=== PATIENT | male | born 1945 | race Caucasian/White ===

== ENCOUNTER 2020-05-23 13:58 | Inpatient (IN) ==
[2020-05-24] MEDS ORDERED: Dextrose Gel 15 GM/37.5 ML TUBE PO PRN ×2 (14:25)
[2020-05-24] MEDS ORDERED: *HR* Dextrose 50 % in Water (Vial) 50 ML VIAL IVP PRN (14:25)
[2020-05-24] MEDS ORDERED: D5% in Water 1,000 ML IVC PRN (14:25)
[2020-05-24 16:00] LABS: Estimated Average Glucose 151 mg/dl
[2020-05-24] MEDS: Insulin LISPRO 300 UNITS/3 ML VIAL SQ SCH ×2 (16:54→21:41)
[2020-05-24] MEDS: *HR* OxyCODONE/APAP 10/325 TABLET PO PRN (16:55)
[2020-05-24] MEDS: Gabapentin 300 MG CAPSULE PO SCH (21:40)
[2020-05-24] MEDS: Insulin DETEMIR 100 UNIT/ML X5UNITS SQ SCH (21:41)
[2020-05-25 07:04] LABS: Basophils % 0.6 %; Eosinophils # 0.2 K/mcL (0.0-0.6); Eosinophils % 3.2 %; Hematocrit 34.9 % (37.5-50.1); Immature Granulocytes % 0.6 % (0-4); Lymphocytes # 1.4 K/mcL (0.6-4.6); Lymphocytes % 21.6 %; Mean Corpuscular HGB Conc 34.4 g/dL (31.6-35.5); Mean Corpuscular Hemoglobin 29.3 pg (28.0-33.3); Mean Corpuscular Volume 85.1 fL (83.0-100.0); Mean Platelet Volume 9.5 fL (9.4-12.4); Monocytes # 0.8 K/mcL (0.0-1.3); Monocytes % 11.8 %; Neutrophils # 4.1 K/mcL (1.6-8.9); Platelet Count 243 K/mcL (140-400); Red Cell Distribution Width 14.6 % (11.5-14.5); Segmented Neutrophils % 62.2 %; White Blood Count 6.6 K/mcL (4.3-11.1)
[2020-05-25 07:22] LABS: BUN/Creatinine Ratio 20 (6-26); Blood Urea Nitrogen 25 mg/dL (8-23); Calcium 8.9 mg/dL (8.6-10.3); Carbon Dioxide 25 mEq/L (23-29); Chloride 95 mEq/L (98-107); Glucose 209 mg/dL (70-105); Osmolality,Calculated 275 (280-300); Potassium 4.7 mEq/L (3.5-5.1); Sodium 127 mEq/L (136-145); eGFR For African Americans > 60 (> 60); eGFR For Non-African Americans 58 (> 60)
[2020-05-25] MEDS: Insulin LISPRO 300 UNITS/3 ML VIAL SQ SCH ×4 (08:05→20:24)
[2020-05-25] MEDS: Gabapentin 300 MG CAPSULE PO SCH ×2 (08:09→20:24)
[2020-05-25] MEDS: Loratadine 10 MG TABLET PO SCH (08:09)
[2020-05-25] MEDS: Aspirin Enteric Coated 81 MG Tablet PO SCH (08:09)
[2020-05-25] MEDS: *HR* GlipiZIDE XL (24 HR) 10 MG TABLET PO SCH (08:09)
[2020-05-25] MEDS: *HR* Metformin 500 MG TABLET PO SCH ×2 (08:09→16:21)
[2020-05-25] MEDS: *HR* Pioglitazone 15 MG TABLET PO SCH (08:09)
[2020-05-25] MEDS: Finasteride 5 MG TABLET PO SCH (08:09)
[2020-05-25] MEDS: amLODIPine 5 MG TABLET PO SCH (08:09)
[2020-05-25] MEDS: Insulin DETEMIR 100 UNIT/ML X5UNITS SQ SCH ×2 (08:17→20:23)
[2020-05-25] MEDS: *HR* OxyCODONE/APAP 10/325 TABLET PO PRN ×2 (11:13→22:10)
[2020-05-26] MEDS: Insulin DETEMIR 100 UNIT/ML X5UNITS SQ SCH ×2 (08:59→20:27)
[2020-05-26] MEDS: Insulin LISPRO 300 UNITS/3 ML VIAL SQ SCH ×4 (09:00→20:27)
[2020-05-26] MEDS: *HR* GlipiZIDE XL (24 HR) 10 MG TABLET PO SCH (09:16)
[2020-05-26] MEDS: *HR* Metformin 500 MG TABLET PO SCH ×2 (09:16→16:54)
[2020-05-26] MEDS: Aspirin Enteric Coated 81 MG Tablet PO SCH (09:16)
[2020-05-26] MEDS: Gabapentin 300 MG CAPSULE PO SCH ×2 (09:16→20:27)
[2020-05-26] MEDS: *HR* Pioglitazone 15 MG TABLET PO SCH (09:16)
[2020-05-26] MEDS: Finasteride 5 MG TABLET PO SCH (09:16)
[2020-05-26] MEDS: amLODIPine 5 MG TABLET PO SCH (09:16)
[2020-05-26] MEDS: Loratadine 10 MG TABLET PO SCH (09:16)
[2020-05-26 10:25] LABS: BUN/Creatinine Ratio 20 (6-26); Blood Urea Nitrogen 26 mg/dL (8-23); Calcium 8.7 mg/dL (8.6-10.3); Carbon Dioxide 25 mEq/L (23-29); Chloride 95 mEq/L (98-107); Glucose 261 mg/dL (70-105); Osmolality,Calculated 278 (280-300); Potassium 4.7 mEq/L (3.5-5.1); Sodium 127 mEq/L (136-145); eGFR For African Americans > 60 (> 60); eGFR For Non-African Americans 55 (> 60)
[2020-05-26] MEDS: *HR* OxyCODONE/APAP 10/325 TABLET PO PRN ×2 (13:21→21:24)
[2020-05-27] MEDS: Insulin DETEMIR 100 UNIT/ML X5UNITS SQ SCH ×2 (08:08→20:38)
[2020-05-27] MEDS: Insulin LISPRO 300 UNITS/3 ML VIAL SQ SCH ×4 (08:08→20:39)
[2020-05-27] MEDS: *HR* Metformin 500 MG TABLET PO SCH ×2 (08:15→16:49)
[2020-05-27] MEDS: Loratadine 10 MG TABLET PO SCH (08:15)
[2020-05-27] MEDS: *HR* GlipiZIDE XL (24 HR) 10 MG TABLET PO SCH (08:15)
[2020-05-27] MEDS: amLODIPine 5 MG TABLET PO SCH (08:15)
[2020-05-27] MEDS: Gabapentin 300 MG CAPSULE PO SCH ×2 (08:15→20:38)
[2020-05-27] MEDS: Finasteride 5 MG TABLET PO SCH (08:15)
[2020-05-27] MEDS: Aspirin Enteric Coated 81 MG Tablet PO SCH (08:15)
[2020-05-27] MEDS: *HR* Pioglitazone 15 MG TABLET PO SCH (08:16)
[2020-05-27 08:43] LABS: BUN/Creatinine Ratio 20 (6-26); Blood Urea Nitrogen 25 mg/dL (8-23); Calcium 8.7 mg/dL (8.6-10.3); Carbon Dioxide 26 mEq/L (23-29); Chloride 96 mEq/L (98-107); Glucose 177 mg/dL (70-105); Osmolality,Calculated 277 (280-300); Sodium 129 mEq/L (136-145); eGFR For African Americans > 60 (> 60); eGFR For Non-African Americans 57 (> 60)
[2020-05-27] MEDS: *HR* OxyCODONE/APAP 10/325 TABLET PO PRN ×2 (11:06→19:29)
[2020-05-28] MEDS: Finasteride 5 MG TABLET PO SCH (08:54)
[2020-05-28] MEDS: *HR* Pioglitazone 15 MG TABLET PO SCH (08:54)
[2020-05-28] MEDS: *HR* GlipiZIDE XL (24 HR) 10 MG TABLET PO SCH (08:54)
[2020-05-28] MEDS: Aspirin Enteric Coated 81 MG Tablet PO SCH (08:54)
[2020-05-28] MEDS: Loratadine 10 MG TABLET PO SCH (08:55)
[2020-05-28] MEDS: amLODIPine 5 MG TABLET PO SCH (08:55)
[2020-05-28] MEDS: *HR* Metformin 500 MG TABLET PO SCH ×2 (08:55→16:57)
[2020-05-28] MEDS: Gabapentin 300 MG CAPSULE PO SCH ×2 (08:56→20:19)
[2020-05-28] MEDS: Insulin DETEMIR 100 UNIT/ML X5UNITS SQ SCH ×2 (08:56→21:15)
[2020-05-28] MEDS: Insulin LISPRO 300 UNITS/3 ML VIAL SQ SCH ×4 (08:56→21:12)
[2020-05-28] MEDS: *HR* OxyCODONE/APAP 10/325 TABLET PO PRN ×2 (10:11→19:12)
[2020-05-29] MEDS: amLODIPine 5 MG TABLET PO SCH (08:58)
[2020-05-29] MEDS: Loratadine 10 MG TABLET PO SCH (08:58)
[2020-05-29] MEDS: *HR* Metformin 500 MG TABLET PO SCH ×2 (08:58→16:53)
[2020-05-29] MEDS: Finasteride 5 MG TABLET PO SCH (08:58)
[2020-05-29] MEDS: Aspirin Enteric Coated 81 MG Tablet PO SCH (08:58)
[2020-05-29] MEDS: Gabapentin 300 MG CAPSULE PO SCH ×2 (08:58→20:22)
[2020-05-29] MEDS: *HR* Pioglitazone 15 MG TABLET PO SCH (09:01)
[2020-05-29] MEDS: *HR* GlipiZIDE XL (24 HR) 10 MG TABLET PO SCH (09:01)
[2020-05-29] MEDS: *HR* OxyCODONE/APAP 10/325 TABLET PO PRN ×2 (09:02→20:22)
[2020-05-29] MEDS: Insulin LISPRO 300 UNITS/3 ML VIAL SQ SCH ×4 (09:06→20:24)
[2020-05-29] MEDS: Insulin DETEMIR 100 UNIT/ML X5UNITS SQ SCH ×2 (09:06→20:23)
[2020-05-30] MEDS: Insulin LISPRO 300 UNITS/3 ML VIAL SQ SCH ×3 (08:24→21:21)
[2020-05-30] MEDS: *HR* Pioglitazone 15 MG TABLET PO SCH (09:11)
[2020-05-30] MEDS: Aspirin Enteric Coated 81 MG Tablet PO SCH (09:12)
[2020-05-30] MEDS: Loratadine 10 MG TABLET PO SCH (09:12)
[2020-05-30] MEDS: *HR* GlipiZIDE XL (24 HR) 10 MG TABLET PO SCH (09:12)
[2020-05-30] MEDS: Gabapentin 300 MG CAPSULE PO SCH ×2 (09:12→21:17)
[2020-05-30] MEDS: amLODIPine 5 MG TABLET PO SCH (09:12)
[2020-05-30] MEDS: Insulin DETEMIR 100 UNIT/ML X5UNITS SQ SCH ×2 (09:12→21:17)
[2020-05-30] MEDS: *HR* Metformin 500 MG TABLET PO SCH (09:12)
[2020-05-30] MEDS: Finasteride 5 MG TABLET PO SCH (09:12)
[2020-05-30] MEDS: *HR* OxyCODONE/APAP 10/325 TABLET PO PRN ×2 (09:48→21:17)
[2020-05-30 23:03] LABS: Adenovirus Not Detected (Not Detect); Bordetella Pertussis Not Detected (Not Detect); Chlamydophila pneumoniae Not Detected (Not Detect); Coronavirus 229E Not Detected (Not Detect); Coronavirus HKU1 Not Detected (Not Detect); Coronavirus NL63 Not Detected (Not Detect); Coronavirus OC43 Not Detected (Not Detect); Human Metapneumovirus Not Detected (Not Detect); Human Rhinovirus/Enterovirus Not Detected (Not Detect); Influenza A Subtype 2009 H1 Not Detected (Not Detect); Influenza B Not Detected (Not Detect); Mycoplasma pneumoniae Not Detected (Not Detect); Parainfluenza Virus 1 Not Detected (Not Detect); Parainfluenza Virus 2 Not Detected (Not Detect); Parainfluenza Virus 3 Not Detected (Not Detect); Parainfluenza Virus 4 Not Detected (Not Detect); Respiratory Syncytial Virus Not Detected (Not Detect); SARS-CoV-2 Not Detected (Not Detect)
[2020-05-31] MEDS: Insulin LISPRO 300 UNITS/3 ML VIAL SQ SCH ×5 (04:14→20:14)
[2020-05-31] MEDS: *HR* Metformin 500 MG TABLET PO SCH ×3 (04:15→17:01)
[2020-05-31] MEDS: Aspirin Enteric Coated 81 MG Tablet PO SCH (09:25)
[2020-05-31] MEDS: amLODIPine 5 MG TABLET PO SCH (09:25)
[2020-05-31] MEDS: Finasteride 5 MG TABLET PO SCH (09:26)
[2020-05-31] MEDS: *HR* GlipiZIDE XL (24 HR) 10 MG TABLET PO SCH (09:26)
[2020-05-31] MEDS: Loratadine 10 MG TABLET PO SCH (09:26)
[2020-05-31] MEDS: *HR* Pioglitazone 15 MG TABLET PO SCH (09:26)
[2020-05-31] MEDS: *HR* OxyCODONE/APAP 10/325 TABLET PO PRN ×2 (09:26→20:11)
[2020-05-31] MEDS: Gabapentin 300 MG CAPSULE PO SCH ×2 (09:26→20:06)
[2020-05-31] MEDS: Insulin DETEMIR 100 UNIT/ML X5UNITS SQ SCH ×2 (09:26→20:06)
[2020-06-01] MEDS: *HR* GlipiZIDE XL (24 HR) 10 MG TABLET PO SCH (08:34)
[2020-06-01] MEDS: Insulin DETEMIR 100 UNIT/ML X5UNITS SQ SCH ×2 (08:34→20:53)
[2020-06-01] MEDS: Finasteride 5 MG TABLET PO SCH (08:35)
[2020-06-01] MEDS: Aspirin Enteric Coated 81 MG Tablet PO SCH (08:35)
[2020-06-01] MEDS: Gabapentin 300 MG CAPSULE PO SCH ×2 (08:35→20:52)
[2020-06-01] MEDS: *HR* Pioglitazone 15 MG TABLET PO SCH (08:35)
[2020-06-01] MEDS: *HR* Metformin 500 MG TABLET PO SCH ×2 (08:35→16:52)
[2020-06-01] MEDS: amLODIPine 5 MG TABLET PO SCH (08:36)
[2020-06-01] MEDS: Loratadine 10 MG TABLET PO SCH (08:36)
[2020-06-01] MEDS: Insulin LISPRO 300 UNITS/3 ML VIAL SQ SCH ×4 (08:37→20:53)
[2020-06-01] MEDS: *HR* OxyCODONE/APAP 10/325 TABLET PO PRN ×2 (08:41→20:52)
[2020-06-02 06:58] LABS: Basophils % 0.5 %; Eosinophils # 0.2 K/mcL (0.0-0.6); Eosinophils % 3.2 %; Hematocrit 34.7 % (37.5-50.1); Hemoglobin 11.6 g/dL (12.9-16.9); Immature Granulocytes % 0.2 % (0-4); Lymphocytes # 1.2 K/mcL (0.6-4.6); Lymphocytes % 19.2 %; Mean Corpuscular HGB Conc 33.4 g/dL (31.6-35.5); Mean Corpuscular Hemoglobin 29.1 pg (28.0-33.3); Mean Platelet Volume 9.8 fL (9.4-12.4); Monocytes # 0.6 K/mcL (0.0-1.3); Monocytes % 9.7 %; Neutrophils # 4.2 K/mcL (1.6-8.9); Platelet Count 218 K/mcL (140-400); Red Blood Count 3.99 M/mcL (4.19-5.50); Red Cell Distribution Width 14.9 % (11.5-14.5); Segmented Neutrophils % 67.2 %; White Blood Count 6.2 K/mcL (4.3-11.1)
[2020-06-02 07:22] LABS: BUN/Creatinine Ratio 20 (6-26); Blood Urea Nitrogen 23 mg/dL (8-23); Calcium 8.7 mg/dL (8.6-10.3); Carbon Dioxide 26 mEq/L (23-29); Chloride 98 mEq/L (98-107); Glucose 113 mg/dL (70-105); Osmolality,Calculated 276 (280-300); Potassium 4.6 mEq/L (3.5-5.1); Sodium 131 mEq/L (136-145); eGFR For African Americans > 60 (> 60); eGFR For Non-African Americans > 60 (> 60)
[2020-06-02] MEDS: Insulin LISPRO 300 UNITS/3 ML VIAL SQ SCH ×4 (07:38→21:22)
[2020-06-02] MEDS: *HR* Pioglitazone 15 MG TABLET PO SCH (08:14)
[2020-06-02] MEDS: Aspirin Enteric Coated 81 MG Tablet PO SCH (08:14)
[2020-06-02] MEDS: *HR* GlipiZIDE XL (24 HR) 10 MG TABLET PO SCH (08:14)
[2020-06-02] MEDS: *HR* Metformin 500 MG TABLET PO SCH ×2 (08:15→16:33)
[2020-06-02] MEDS: amLODIPine 5 MG TABLET PO SCH (08:16)
[2020-06-02] MEDS: Gabapentin 300 MG CAPSULE PO SCH ×2 (08:16→21:20)
[2020-06-02] MEDS: Insulin DETEMIR 100 UNIT/ML X5UNITS SQ SCH ×2 (08:16→21:22)
[2020-06-02] MEDS: Finasteride 5 MG TABLET PO SCH (08:16)
[2020-06-02] MEDS: Loratadine 10 MG TABLET PO SCH (08:16)
[2020-06-02] MEDS: *HR* OxyCODONE/APAP 10/325 TABLET PO PRN ×2 (08:18→16:33)
[2020-06-03] MEDS: Gabapentin 300 MG CAPSULE PO SCH ×2 (08:11→19:54)
[2020-06-03] MEDS: Aspirin Enteric Coated 81 MG Tablet PO SCH (08:11)
[2020-06-03] MEDS: Loratadine 10 MG TABLET PO SCH (08:11)
[2020-06-03] MEDS: amLODIPine 5 MG TABLET PO SCH (08:11)
[2020-06-03] MEDS: *HR* Pioglitazone 15 MG TABLET PO SCH (08:11)
[2020-06-03] MEDS: *HR* Metformin 500 MG TABLET PO SCH ×2 (08:11→16:05)
[2020-06-03] MEDS: *HR* GlipiZIDE XL (24 HR) 10 MG TABLET PO SCH (08:11)
[2020-06-03] MEDS: Insulin DETEMIR 100 UNIT/ML X5UNITS SQ SCH ×2 (08:12→19:59)
[2020-06-03] MEDS: Finasteride 5 MG TABLET PO SCH (08:12)
[2020-06-03] MEDS: Insulin LISPRO 300 UNITS/3 ML VIAL SQ SCH ×4 (08:12→20:04)
[2020-06-03] MEDS: *HR* OxyCODONE/APAP 10/325 TABLET PO PRN ×2 (09:18→18:28)
[2020-06-03] MEDS: lisinopriL 20 MG TABLET PO SCH (11:07)
[2020-06-04] MEDS: Insulin LISPRO 300 UNITS/3 ML VIAL SQ SCH ×4 (08:52→20:28)
[2020-06-04] MEDS: *HR* Pioglitazone 15 MG TABLET PO SCH (09:55)
[2020-06-04] MEDS: Loratadine 10 MG TABLET PO SCH (09:56)
[2020-06-04] MEDS: *HR* Metformin 500 MG TABLET PO SCH ×2 (09:56→17:57)
[2020-06-04] MEDS: *HR* OxyCODONE/APAP 10/325 TABLET PO PRN ×2 (09:56→17:57)
[2020-06-04] MEDS: *HR* GlipiZIDE XL (24 HR) 10 MG TABLET PO SCH (09:56)
[2020-06-04] MEDS: lisinopriL 20 MG TABLET PO SCH (09:56)
[2020-06-04] MEDS: amLODIPine 5 MG TABLET PO SCH (09:56)
[2020-06-04] MEDS: Finasteride 5 MG TABLET PO SCH (09:56)
[2020-06-04] MEDS: Gabapentin 300 MG CAPSULE PO SCH ×2 (09:57→20:28)
[2020-06-04] MEDS: Insulin DETEMIR 100 UNIT/ML X5UNITS SQ SCH ×2 (09:57→20:29)
[2020-06-04] MEDS: Aspirin Enteric Coated 81 MG Tablet PO SCH (09:57)
[2020-06-05] MEDS: Insulin DETEMIR 100 UNIT/ML X5UNITS SQ SCH ×2 (08:10→20:05)
[2020-06-05] MEDS: *HR* Metformin 500 MG TABLET PO SCH ×2 (08:10→17:01)
[2020-06-05] MEDS: Aspirin Enteric Coated 81 MG Tablet PO SCH (08:11)
[2020-06-05] MEDS: Finasteride 5 MG TABLET PO SCH (08:11)
[2020-06-05] MEDS: lisinopriL 20 MG TABLET PO SCH (08:11)
[2020-06-05] MEDS: Loratadine 10 MG TABLET PO SCH (08:11)
[2020-06-05] MEDS: Insulin LISPRO 300 UNITS/3 ML VIAL SQ SCH ×4 (08:11→20:20)
[2020-06-05] MEDS: Gabapentin 300 MG CAPSULE PO SCH ×2 (08:11→20:05)
[2020-06-05] MEDS: amLODIPine 5 MG TABLET PO SCH (08:11)
[2020-06-05] MEDS: *HR* Pioglitazone 15 MG TABLET PO SCH (08:19)
[2020-06-05] MEDS: *HR* OxyCODONE/APAP 10/325 TABLET PO PRN ×2 (08:19→17:53)
[2020-06-05] MEDS: *HR* GlipiZIDE XL (24 HR) 10 MG TABLET PO SCH (08:19)
[2020-06-06] MEDS: Insulin LISPRO 300 UNITS/3 ML VIAL SQ SCH ×4 (09:10→21:02)
[2020-06-06] MEDS: Gabapentin 300 MG CAPSULE PO SCH ×2 (09:12→21:03)
[2020-06-06] MEDS: *HR* Metformin 500 MG TABLET PO SCH ×2 (09:12→17:28)
[2020-06-06] MEDS: *HR* GlipiZIDE XL (24 HR) 10 MG TABLET PO SCH (09:12)
[2020-06-06] MEDS: lisinopriL 20 MG TABLET PO SCH (09:12)
[2020-06-06] MEDS: *HR* Pioglitazone 15 MG TABLET PO SCH (09:13)
[2020-06-06] MEDS: Loratadine 10 MG TABLET PO SCH (09:13)
[2020-06-06] MEDS: Finasteride 5 MG TABLET PO SCH (09:13)
[2020-06-06] MEDS: Aspirin Enteric Coated 81 MG Tablet PO SCH (09:13)
[2020-06-06] MEDS: amLODIPine 5 MG TABLET PO SCH (09:13)
[2020-06-06] MEDS: *HR* OxyCODONE/APAP 10/325 TABLET PO PRN ×2 (09:13→21:04)
[2020-06-06] MEDS: Insulin DETEMIR 100 UNIT/ML X5UNITS SQ SCH ×2 (09:21→22:19)
[2020-06-07] MEDS: *HR* OxyCODONE/APAP 10/325 TABLET PO PRN ×2 (06:06→17:15)
[2020-06-07] MEDS: amLODIPine 5 MG TABLET PO SCH (08:06)
[2020-06-07] MEDS: Finasteride 5 MG TABLET PO SCH (08:06)
[2020-06-07] MEDS: *HR* Pioglitazone 15 MG TABLET PO SCH (08:06)
[2020-06-07] MEDS: Gabapentin 300 MG CAPSULE PO SCH ×2 (08:06→20:18)
[2020-06-07] MEDS: *HR* GlipiZIDE XL (24 HR) 10 MG TABLET PO SCH (08:06)
[2020-06-07] MEDS: Loratadine 10 MG TABLET PO SCH (08:07)
[2020-06-07] MEDS: Aspirin Enteric Coated 81 MG Tablet PO SCH (08:07)
[2020-06-07] MEDS: *HR* Metformin 500 MG TABLET PO SCH ×2 (08:07→17:12)
[2020-06-07] MEDS: lisinopriL 20 MG TABLET PO SCH (08:07)
[2020-06-07] MEDS: Insulin LISPRO 300 UNITS/3 ML VIAL SQ SCH ×4 (08:08→20:24)
[2020-06-07] MEDS: Insulin DETEMIR 100 UNIT/ML X5UNITS SQ SCH ×2 (08:43→20:18)
[2020-06-07] MEDS ORDERED: Furosemide 40 MG TABLET PO ONE (08:56)
[2020-06-08] MEDS: Insulin LISPRO 300 UNITS/3 ML VIAL SQ SCH ×4 (08:55→20:27)
[2020-06-08] MEDS: *HR* OxyCODONE/APAP 10/325 TABLET PO PRN ×2 (08:56→20:25)
[2020-06-08] MEDS: Finasteride 5 MG TABLET PO SCH (08:57)
[2020-06-08] MEDS: *HR* GlipiZIDE XL (24 HR) 10 MG TABLET PO SCH (08:57)
[2020-06-08] MEDS: Aspirin Enteric Coated 81 MG Tablet PO SCH (08:57)
[2020-06-08] MEDS: lisinopriL 20 MG TABLET PO SCH (08:57)
[2020-06-08] MEDS: *HR* Pioglitazone 15 MG TABLET PO SCH (08:57)
[2020-06-08] MEDS: Gabapentin 300 MG CAPSULE PO SCH ×2 (08:57→20:25)
[2020-06-08] MEDS: amLODIPine 5 MG TABLET PO SCH (08:57)
[2020-06-08] MEDS: *HR* Metformin 500 MG TABLET PO SCH ×2 (08:57→16:01)
[2020-06-08] MEDS: Loratadine 10 MG TABLET PO SCH (08:57)
[2020-06-08] MEDS: Insulin DETEMIR 100 UNIT/ML X5UNITS SQ SCH ×2 (08:58→20:25)
[2020-06-09] MEDS: Insulin LISPRO 300 UNITS/3 ML VIAL SQ SCH ×4 (07:33→20:12)
[2020-06-09] MEDS: lisinopriL 20 MG TABLET PO SCH (08:34)
[2020-06-09] MEDS: Gabapentin 300 MG CAPSULE PO SCH ×2 (08:34→20:11)
[2020-06-09] MEDS: *HR* Pioglitazone 15 MG TABLET PO SCH (08:34)
[2020-06-09] MEDS: *HR* Metformin 500 MG TABLET PO SCH ×2 (08:34→16:29)
[2020-06-09] MEDS: Finasteride 5 MG TABLET PO SCH (08:34)
[2020-06-09] MEDS: *HR* GlipiZIDE XL (24 HR) 10 MG TABLET PO SCH (08:34)
[2020-06-09] MEDS: amLODIPine 5 MG TABLET PO SCH (08:34)
[2020-06-09] MEDS: Aspirin Enteric Coated 81 MG Tablet PO SCH (08:34)
[2020-06-09] MEDS: Insulin DETEMIR 100 UNIT/ML X5UNITS SQ SCH ×2 (08:35→20:12)
[2020-06-09] MEDS: *HR* OxyCODONE/APAP 10/325 TABLET PO PRN ×2 (08:35→16:32)
[2020-06-09] MEDS: Loratadine 10 MG TABLET PO SCH (08:35)
[2020-06-10] MEDS: Insulin LISPRO 300 UNITS/3 ML VIAL SQ SCH ×4 (08:09→20:21)
[2020-06-10] MEDS: Loratadine 10 MG TABLET PO SCH (08:10)
[2020-06-10] MEDS: amLODIPine 5 MG TABLET PO SCH (08:10)
[2020-06-10] MEDS: *HR* GlipiZIDE XL (24 HR) 10 MG TABLET PO SCH (08:10)
[2020-06-10] MEDS: *HR* OxyCODONE/APAP 10/325 TABLET PO PRN ×2 (08:10→16:51)
[2020-06-10] MEDS: Finasteride 5 MG TABLET PO SCH (08:10)
[2020-06-10] MEDS: lisinopriL 20 MG TABLET PO SCH (08:10)
[2020-06-10] MEDS: *HR* Metformin 500 MG TABLET PO SCH ×2 (08:11→16:45)
[2020-06-10] MEDS: Gabapentin 300 MG CAPSULE PO SCH ×2 (08:11→20:10)
[2020-06-10] MEDS: Insulin DETEMIR 100 UNIT/ML X5UNITS SQ SCH ×2 (08:11→20:10)
[2020-06-10] MEDS: Aspirin Enteric Coated 81 MG Tablet PO SCH (08:11)
[2020-06-10] MEDS: *HR* Pioglitazone 15 MG TABLET PO SCH (08:11)
[2020-06-11 06:07] LABS: Hematocrit 32.7 % (37.5-50.1); Hemoglobin 10.8 g/dL (12.9-16.9); Mean Corpuscular Volume 87.9 fL (83.0-100.0); Mean Platelet Volume 9.6 fL (9.4-12.4); Platelet Count 195 K/mcL (140-400); Red Blood Count 3.72 M/mcL (4.19-5.50); White Blood Count 4.4 K/mcL (4.3-11.1)
[2020-06-11 07:01] LABS: Potassium 5.2 mEq/L (3.5-5.1); Sodium 132 mEq/L (136-145)
[2020-06-11 07:02] LABS: BUN/Creatinine Ratio 20 (6-26); Blood Urea Nitrogen 21 mg/dL (8-23); Carbon Dioxide 23 mEq/L (23-29); Chloride 102 mEq/L (98-107); Glucose 94 mg/dL (70-105); Osmolality,Calculated 277 (280-300); eGFR For African Americans > 60 (> 60); eGFR For Non-African Americans > 60 (> 60)
[2020-06-11 07:03] LABS: Calcium 8.6 mg/dL (8.6-10.3); Magnesium 1.8 mg/dL (1.6-2.6)
[2020-06-11] MEDS: Insulin DETEMIR 100 UNIT/ML X5UNITS SQ SCH ×2 (08:27→19:47)
[2020-06-11] MEDS: *HR* Metformin 500 MG TABLET PO SCH ×2 (08:28→16:41)
[2020-06-11] MEDS: Loratadine 10 MG TABLET PO SCH (08:28)
[2020-06-11] MEDS: Finasteride 5 MG TABLET PO SCH (08:28)
[2020-06-11] MEDS: Aspirin Enteric Coated 81 MG Tablet PO SCH (08:28)
[2020-06-11] MEDS: lisinopriL 20 MG TABLET PO SCH (08:28)
[2020-06-11] MEDS: *HR* Pioglitazone 15 MG TABLET PO SCH (08:28)
[2020-06-11] MEDS: amLODIPine 5 MG TABLET PO SCH (08:28)
[2020-06-11] MEDS: Gabapentin 300 MG CAPSULE PO SCH ×2 (08:28→19:46)
[2020-06-11] MEDS: *HR* GlipiZIDE XL (24 HR) 10 MG TABLET PO SCH (08:28)
[2020-06-11] MEDS: *HR* OxyCODONE/APAP 10/325 TABLET PO PRN ×2 (08:30→16:44)
[2020-06-11] MEDS: Insulin LISPRO 300 UNITS/3 ML VIAL SQ SCH ×4 (08:44→19:45)
[2020-06-12] MEDS: Gabapentin 300 MG CAPSULE PO SCH ×2 (08:43→20:10)
[2020-06-12] MEDS: lisinopriL 20 MG TABLET PO SCH (08:43)
[2020-06-12] MEDS: Aspirin Enteric Coated 81 MG Tablet PO SCH (08:43)
[2020-06-12] MEDS: *HR* GlipiZIDE XL (24 HR) 10 MG TABLET PO SCH (08:43)
[2020-06-12] MEDS: amLODIPine 5 MG TABLET PO SCH (08:43)
[2020-06-12] MEDS: Finasteride 5 MG TABLET PO SCH (08:43)
[2020-06-12] MEDS: *HR* Pioglitazone 15 MG TABLET PO SCH (08:43)
[2020-06-12] MEDS: *HR* Metformin 500 MG TABLET PO SCH ×2 (08:43→16:59)
[2020-06-12] MEDS: Loratadine 10 MG TABLET PO SCH (08:44)
[2020-06-12] MEDS: Insulin LISPRO 300 UNITS/3 ML VIAL SQ SCH ×4 (08:44→20:10)
[2020-06-12] MEDS: *HR* OxyCODONE/APAP 10/325 TABLET PO PRN ×2 (08:46→20:10)
[2020-06-12] MEDS: Insulin DETEMIR 100 UNIT/ML X5UNITS SQ SCH ×2 (09:26→20:10)
[2020-06-13] MEDS: Insulin LISPRO 300 UNITS/3 ML VIAL SQ SCH ×4 (09:24→20:16)
[2020-06-13] MEDS: Aspirin Enteric Coated 81 MG Tablet PO SCH (10:42)
[2020-06-13] MEDS: amLODIPine 5 MG TABLET PO SCH (10:42)
[2020-06-13] MEDS: Gabapentin 300 MG CAPSULE PO SCH ×2 (10:42→20:09)
[2020-06-13] MEDS: *HR* Metformin 500 MG TABLET PO SCH ×2 (10:43→16:33)
[2020-06-13] MEDS: Loratadine 10 MG TABLET PO SCH (10:43)
[2020-06-13] MEDS: lisinopriL 20 MG TABLET PO SCH (10:43)
[2020-06-13] MEDS: *HR* Pioglitazone 15 MG TABLET PO SCH (10:44)
[2020-06-13] MEDS: *HR* GlipiZIDE XL (24 HR) 10 MG TABLET PO SCH (10:44)
[2020-06-13] MEDS: Insulin DETEMIR 100 UNIT/ML X5UNITS SQ SCH ×2 (10:44→20:10)
[2020-06-13] MEDS: Finasteride 5 MG TABLET PO SCH (10:45)
[2020-06-13] MEDS: *HR* OxyCODONE/APAP 10/325 TABLET PO PRN ×2 (12:07→20:09)
[2020-06-14] MEDS: Insulin LISPRO 300 UNITS/3 ML VIAL SQ SCH ×4 (08:24→19:44)
[2020-06-14] MEDS: *HR* Pioglitazone 15 MG TABLET PO SCH (08:25)
[2020-06-14] MEDS: Aspirin Enteric Coated 81 MG Tablet PO SCH (08:25)
[2020-06-14] MEDS: *HR* Metformin 500 MG TABLET PO SCH ×2 (08:25→18:30)
[2020-06-14] MEDS: Finasteride 5 MG TABLET PO SCH (08:25)
[2020-06-14] MEDS: lisinopriL 20 MG TABLET PO SCH (08:26)
[2020-06-14] MEDS: Gabapentin 300 MG CAPSULE PO SCH ×2 (08:26→21:10)
[2020-06-14] MEDS: Insulin DETEMIR 100 UNIT/ML X5UNITS SQ SCH ×2 (08:26→21:10)
[2020-06-14] MEDS: *HR* GlipiZIDE XL (24 HR) 10 MG TABLET PO SCH (08:26)
[2020-06-14] MEDS: amLODIPine 5 MG TABLET PO SCH (08:26)
[2020-06-14] MEDS: Loratadine 10 MG TABLET PO SCH (08:26)
[2020-06-14] MEDS: *HR* OxyCODONE/APAP 10/325 TABLET PO PRN ×2 (08:26→18:34)
[2020-06-14 21:16] LABS: Adenovirus Not Detected (Not Detect); Bordetella Pertussis Not Detected (Not Detect); Chlamydophila pneumoniae Not Detected (Not Detect); Coronavirus 229E Not Detected (Not Detect); Coronavirus HKU1 Not Detected (Not Detect); Coronavirus NL63 Not Detected (Not Detect); Coronavirus OC43 Not Detected (Not Detect); Human Metapneumovirus Not Detected (Not Detect); Human Rhinovirus/Enterovirus Not Detected (Not Detect); Influenza A Subtype 2009 H1 Not Detected (Not Detect); Influenza B Not Detected (Not Detect); Mycoplasma pneumoniae Not Detected (Not Detect); Parainfluenza Virus 1 Not Detected (Not Detect); Parainfluenza Virus 2 Not Detected (Not Detect); Parainfluenza Virus 3 Not Detected (Not Detect); Parainfluenza Virus 4 Not Detected (Not Detect); Respiratory Syncytial Virus Not Detected (Not Detect); SARS-CoV-2 Not Detected (Not Detect)
[2020-06-15] MEDS: Insulin LISPRO 300 UNITS/3 ML VIAL SQ SCH ×4 (08:34→21:36)
[2020-06-15] MEDS: *HR* Pioglitazone 15 MG TABLET PO SCH (09:05)
[2020-06-15] MEDS: *HR* Metformin 500 MG TABLET PO SCH ×2 (09:05→17:39)
[2020-06-15] MEDS: Insulin DETEMIR 100 UNIT/ML X5UNITS SQ SCH ×2 (09:05→22:11)
[2020-06-15] MEDS: lisinopriL 20 MG TABLET PO SCH (09:05)
[2020-06-15] MEDS: Gabapentin 300 MG CAPSULE PO SCH ×2 (09:05→22:11)
[2020-06-15] MEDS: *HR* GlipiZIDE XL (24 HR) 10 MG TABLET PO SCH (09:06)
[2020-06-15] MEDS: *HR* OxyCODONE/APAP 10/325 TABLET PO PRN ×2 (09:06→17:43)
[2020-06-15] MEDS: Loratadine 10 MG TABLET PO SCH (09:06)
[2020-06-15] MEDS: Finasteride 5 MG TABLET PO SCH (09:06)
[2020-06-15] MEDS: Aspirin Enteric Coated 81 MG Tablet PO SCH (09:06)
[2020-06-15] MEDS: amLODIPine 5 MG TABLET PO SCH (09:06)
[2020-06-16] MEDS: Insulin LISPRO 300 UNITS/3 ML VIAL SQ SCH ×4 (08:49→22:17)
[2020-06-16] MEDS: Gabapentin 300 MG CAPSULE PO SCH ×2 (09:10→20:30)
[2020-06-16] MEDS: Finasteride 5 MG TABLET PO SCH (09:10)
[2020-06-16] MEDS: Aspirin Enteric Coated 81 MG Tablet PO SCH (09:10)
[2020-06-16] MEDS: lisinopriL 20 MG TABLET PO SCH (09:10)
[2020-06-16] MEDS: Loratadine 10 MG TABLET PO SCH (09:10)
[2020-06-16] MEDS: amLODIPine 5 MG TABLET PO SCH (09:10)
[2020-06-16] MEDS: *HR* Pioglitazone 15 MG TABLET PO SCH (09:10)
[2020-06-16] MEDS: *HR* GlipiZIDE XL (24 HR) 10 MG TABLET PO SCH (09:10)
[2020-06-16] MEDS: *HR* Metformin 500 MG TABLET PO SCH ×2 (09:10→18:02)
[2020-06-16] MEDS: Insulin DETEMIR 100 UNIT/ML X5UNITS SQ SCH ×2 (09:19→20:31)
[2020-06-16] MEDS: *HR* OxyCODONE/APAP 10/325 TABLET PO PRN ×2 (09:22→20:35)
[2020-06-17 07:23] LABS: Basophils % 0.4 %; Eosinophils # 0.2 K/mcL (0.0-0.6); Eosinophils % 4.2 %; Hematocrit 32.8 % (37.5-50.1); Hemoglobin 10.7 g/dL (12.9-16.9); Immature Granulocytes % 0.2 % (0-4); Lymphocytes # 1.1 K/mcL (0.6-4.6); Lymphocytes % 24.4 %; Mean Corpuscular HGB Conc 32.6 g/dL (31.6-35.5); Mean Corpuscular Hemoglobin 28.7 pg (28.0-33.3); Mean Corpuscular Volume 87.9 fL (83.0-100.0); Mean Platelet Volume 9.8 fL (9.4-12.4); Monocytes # 0.5 K/mcL (0.0-1.3); Neutrophils # 2.7 K/mcL (1.6-8.9); Platelet Count 197 K/mcL (140-400); Red Blood Count 3.73 M/mcL (4.19-5.50); Red Cell Distribution Width 15.4 % (11.5-14.5); Segmented Neutrophils % 58.8 %; White Blood Count 4.5 K/mcL (4.3-11.1)
[2020-06-17 07:42] LABS: BUN/Creatinine Ratio 20 (6-26); Blood Urea Nitrogen 24 mg/dL (8-23); Calcium 8.4 mg/dL (8.6-10.3); Carbon Dioxide 25 mEq/L (23-29); Chloride 102 mEq/L (98-107); Glucose 89 mg/dL (70-105); Osmolality,Calculated 282 (280-300); Sodium 134 mEq/L (136-145); eGFR For African Americans > 60 (> 60); eGFR For Non-African Americans 59 (> 60)
[2020-06-17] MEDS: Insulin DETEMIR 100 UNIT/ML X5UNITS SQ SCH ×2 (09:01→20:14)
[2020-06-17] MEDS: amLODIPine 5 MG TABLET PO SCH (09:02)
[2020-06-17] MEDS: Gabapentin 300 MG CAPSULE PO SCH ×2 (09:02→20:12)
[2020-06-17] MEDS: Finasteride 5 MG TABLET PO SCH (09:02)
[2020-06-17] MEDS: *HR* GlipiZIDE XL (24 HR) 10 MG TABLET PO SCH (09:02)
[2020-06-17] MEDS: Aspirin Enteric Coated 81 MG Tablet PO SCH (09:03)
[2020-06-17] MEDS: *HR* Metformin 500 MG TABLET PO SCH ×2 (09:03→16:34)
[2020-06-17] MEDS: lisinopriL 20 MG TABLET PO SCH (09:03)
[2020-06-17] MEDS: *HR* OxyCODONE/APAP 10/325 TABLET PO PRN ×2 (09:03→20:12)
[2020-06-17] MEDS: Loratadine 10 MG TABLET PO SCH (09:03)
[2020-06-17] MEDS: *HR* Pioglitazone 15 MG TABLET PO SCH (09:03)
[2020-06-17] MEDS: Insulin LISPRO 300 UNITS/3 ML VIAL SQ SCH ×4 (09:04→20:19)
[2020-06-18 06:48] VITALS: BP 131/67
[2020-06-18] MEDS: Insulin LISPRO 300 UNITS/3 ML VIAL SQ SCH ×2 (07:20→12:19)
[2020-06-18] MEDS: *HR* Metformin 500 MG TABLET PO SCH (08:01)
[2020-06-18] MEDS: Gabapentin 300 MG CAPSULE PO SCH (08:01)
[2020-06-18] MEDS: *HR* Pioglitazone 15 MG TABLET PO SCH (08:01)
[2020-06-18] MEDS: Aspirin Enteric Coated 81 MG Tablet PO SCH (08:01)
[2020-06-18] MEDS: Finasteride 5 MG TABLET PO SCH (08:02)
[2020-06-18] MEDS: Loratadine 10 MG TABLET PO SCH (08:02)
[2020-06-18] MEDS: amLODIPine 5 MG TABLET PO SCH (08:02)
[2020-06-18] MEDS: *HR* GlipiZIDE XL (24 HR) 10 MG TABLET PO SCH (08:02)
[2020-06-18] MEDS: lisinopriL 20 MG TABLET PO SCH (08:02)
[2020-06-18] MEDS: Insulin DETEMIR 100 UNIT/ML X5UNITS SQ SCH (09:10)
== END 2020-06-18 17:15 | disposition home health service (06) | DRG 552 ==
LOC: INPPIK 05-24 13:50
PROVIDERS: ADMIT Family Medicine; ATTEND Family Medicine